=== PATIENT | male | born 1935 | race African-American/Black ===

== ENCOUNTER 2024-07-05 10:10 | Emergency (ER) | payer OTHER ==
[~2024-07-05] VITALS: Ht 182.9 cm; Wt 83.0 kg
[2024-07-05 10:12] VITALS: TEMP 37.2; O2SAT 100
[2024-07-05] MEDS ORDERED: METHYLPREDNISOLONE 40MG/ML INJ IV ONE (10:45)
[2024-07-05 10:50] LABS: BASOPHILS % 0.8 % (0.0-2.0); EOSINOPHILS % 8.7 % (0.0-5.0); HEMATOCRIT. 39.6 % (42.0-52.0); HEMOGLOBIN. 12.9 g/dL (14.0-18.0); LYMPHOCYTES % 34.8 % (20.0-50.0); MEAN CORPUSCULAR HEMOGLOBIN 30.4 pg (28.0-32.0); MEAN CORPUSCULAR HGB CONC 32.7 g/dL (31.0-37.0); MEAN CORPUSCULAR VOLUME 93.2 fL (80.0-94.0); MONOCYTES % 5.3 % (2.0-8.0); NEUTROPHILS % 50.4 % (40.0-76.0); PLATELET 292 x1000/uL (130-400); RED BLOOD CELL COUNT 4.25 mill/uL (4.7-6.1); RED CELL DISTRIBUTION WIDTH 14.5 % (11.6-14.6); WHITE BLOOD COUNT 9.9 x1000/uL (4.5-11.0)
[2024-07-05] MEDS: METHYLPREDNISOLONE SOD SUCC 125MG/2ML (ACT-O-VIAL) IV NR (10:53)
[2024-07-05 10:57] LABS: CHLORIDE 108 mEq/L (98-107); SODIUM 146 mEq/L (136-145)
[2024-07-05 10:58] LABS: CARBON DIOXIDE 29 mEq/L (21-32)
[2024-07-05 11:03] LABS: CREATININE 1.3 mg/dL (0.6-1.3); GLUCOSE 131 mg/dL (70-105); UREA NITROGEN BLOOD 15 mg/dL (9-23)
[2024-07-05 11:04] LABS: TROPONIN I HIGH SENSITIVITY 17 ng/L (3.0-53)
[2024-07-05] MEDS ORDERED: ALBU90AE INH (11:30)
[2024-07-05] MEDS ORDERED: BENZ100C86 MT (11:30)
[2024-07-05] MEDS ORDERED: P50 MT (11:30)
[2024-07-05] MEDS: SODIUM CHLORIDE 0.9% 1,000 ML IV ONE (11:31)
[2024-07-05 11:34] VITALS: BP 137/56; PULSE 94; RESP 19; O2SAT 97
[2024-07-05 11:39] LABS: INR 0.9
== END 2024-07-05 11:45 | disposition home or self-care (01) ==
LOC: ER 10:10
DX: R06.02 Shortness of breath (principal); I10 Essential (primary) hypertension; J45.901 Unspecified asthma with (acute) exacerbation
CPT/HCPCS: 99285; 96374; 71045; 80048; 83880; 85025; 85610; 84484; 36415; 93005; J2919; J7030; A4606; J2920